=== PATIENT | male | born 2000 | race Hispanic/Latino ===

== ENCOUNTER 2018-02-16 12:36 | Emergency (ER) | payer MEDICAID, OTHER ==
[2018-02-16] MEDS ORDERED: KETOROLAC TROMETHAMINE 60 MG/2 ML VIAL ONE (15:41)
== END 2018-02-16 16:02 | disposition home or self-care (01) ==
LOC: EDH 12:36
DX: S02.2XXA Fracture of nasal bones, initial encounter for closed fracture (principal); Y04.0XXA Assault by unarmed brawl or fight, initial encounter; Y93.89 Activity, other specified; Y92.098 Other place in other non-institutional residence as the place of occurrence of the external cause; Y99.8 Other external cause status
CPT/HCPCS: 70450; 70486; 96372; 99284; J1885